=== PATIENT | female | born 1985 | race Caucasian/White ===

== ENCOUNTER 2018-07-30 17:30 | Inpatient (IN) | payer BC, SELFPAY ==
[~2018-07-30] VITALS: Ht 154.9 cm; Wt 72.1 kg
[2018-07-30] MEDS ORDERED: OXYTOCIN/0.9 % SODIUM CHLORIDE 1,000 ML IV SCH (17:46)
[2018-07-30] MEDS ORDERED: LR 1,000 ML IV ONE (17:46)
[2018-07-30] MEDS ORDERED: LR 1,000 ML IV SCH (17:46)
[2018-07-30] MEDS ORDERED: NALBUPHINE HCL 10 MG/ML AMP IVP PRN (18:00)
[2018-07-30] MEDS ORDERED: TERBUTALINE SULFATE 1 MG/ML VIAL SUBCUT ONE (18:00)
[2018-07-30 18:28] LABS: BASOPHILS % (AUTO) 0.4 % (0.0-2.0); EOSINOPHILS # (AUTO) 0.1 K/uL (0.0-0.4); EOSINOPHILS % (AUTO) 0.8 % (0.0-4.0); HEMATOCRIT 37.2 % (36-48); HEMOGLOBIN 12.6 g/dL (12.0-16.0); LYMPHOCYTES % (AUTO) 21.4 % (20.5-51.5); MEAN CORPUSCULAR HEMOGLOBIN 33 pg (27-31); MEAN CORPUSCULAR HGB CONC 34 % (32-36); MEAN CORPUSCULAR VOLUME 98 fL (79.0-98.0); MONOCYTES # (AUTO) 0.5 K/uL (0.0-1.0); NEUTROPHILS # (AUTO) 6.8 K/uL (1.8-7.7); NEUTROPHILS % (AUTO) 72.4 % (40.0-70.0); PLATELET COUNT (AUTO) 220 K/uL (130-430); RED BLOOD CELL COUNT(AUTO) 3.79 MIL/uL (4.2-6.2); RED CELL DISTRIBUTION WIDTH 13.4 % (9.0-15.0); WHITE BLOOD COUNT (AUTO) 9.4 K/uL (4.8-10.8)
[2018-07-30 18:34] VITALS: BP_SYST 115
[2018-07-30] MEDS ORDERED: ROPIVACAINE 0.2% 100 ML ONE (19:06)
[2018-07-30] MEDS ORDERED: fentaNYL CITRATE/PF 100 MCG/2 ML AMP ONE (19:06)
[2018-07-30] MEDS ORDERED: CLINDAMYCIN 600 MG in D5W 50 ML IV SCH (19:30)
[2018-07-30] MEDS ORDERED: LR 500 ML IV ONE (21:35)
[2018-07-30] MEDS ORDERED: FENT2mCg/mL-ROPIVA0.2%/NS EPID 150 ML EP SCH (21:45)
[2018-07-31] MEDS ORDERED: ROPIVACAINE 0.2% 100 ML ONE (02:06)
[2018-07-31] MEDS ORDERED: OXYTOCIN/0.9 % SODIUM CHLORIDE 1,000 ML IV ONE (07:38)
[2018-07-31] MEDS ORDERED: OXYTOCIN/0.9 % SODIUM CHLORIDE 1,000 ML IV SCH (07:38)
[2018-07-31] MEDS ORDERED: OXYCODONE/ACETAMINOPHEN 5-325 TABLET PO PRN (07:45)
[2018-07-31] MEDS ORDERED: DOCUSATE SODIUM 100 MG CAPSULE PO PRN (07:45)
[2018-07-31] MEDS ORDERED: HYDROCORTISONE 0.5%, 28.35 GM TOPICAL CREAM TP PRN (07:45)
[2018-07-31] MEDS ORDERED: CLINDAMYCIN 600 MG in D5W 50 ML IV SCH (07:45)
[2018-07-31] MEDS ORDERED: LANOLIN 7 GM OINT. TP PRN (07:45)
[2018-07-31] MEDS ORDERED: METHYLERGONOVINE MALEATE 0.2 MG TABLET PO PRN (07:45)
[2018-07-31] MEDS ORDERED: WITCH HAZEL LEAF 1 MED.PAD MED.PAD TP PRN (07:45)
[2018-07-31] MEDS ORDERED: RHO(D) IMMUNE GLOBULIN/MALTOSE 1500 UNITS/1.3 ML (WINHRO) IM PRN (07:45)
[2018-07-31] MEDS ORDERED: DERMOPLAST SPRAY TP PRN (07:45)
[2018-07-31] MEDS ORDERED: MEASLES,MUMPS&RUBELLA VACC/PF 12500 UNIT/0.5 ML VIAL SUBQ PRN (07:45)
[2018-07-31] MEDS ORDERED: DIPH-TET-PERTUS Vaccine 0.5 ML VIAL (ADACEL) I.M. PRN (07:45)
[2018-07-31] MEDS ORDERED: HYDROcodone/ACETAMIN 5-325 MG TAB (NORCO/ VICODIN) PO PRN (07:45)
[2018-07-31] MEDS: IBUPROFEN 600 MG TABLET PO SCH ×3 (08:35→23:59)
[2018-07-31] MEDS ORDERED: IBUPROFEN 600 MG TABLET PO SCH (12:00)
[2018-07-31] MEDS: OXYCODONE/ACETAMINOPHEN 5-325 TABLET PO PRN ×3 (13:08→21:13)
[2018-07-31] MEDS ORDERED: TEMAZEPAM 15 MG CAPSULE PO PRN (21:00)
[2018-08-01] MEDS: IBUPROFEN 600 MG TABLET PO SCH ×3 (06:00→12:00)
[2018-08-01 08:18] LABS: HEMATOCRIT 29.5 % (36-48); MEAN CORPUSCULAR HEMOGLOBIN 33 pg (27-31); MEAN CORPUSCULAR HGB CONC 34 % (32-36); MEAN CORPUSCULAR VOLUME 99 fL (79.0-98.0); RED BLOOD CELL COUNT(AUTO) 2.99 MIL/uL (4.2-6.2); WHITE BLOOD COUNT (AUTO) 9.8 K/uL (4.8-10.8)
[2018-08-01 08:19] LABS: BASOPHILS % (AUTO) 0.2 % (0.0-2.0); EOSINOPHILS # (AUTO) 0.2 K/uL (0.0-0.4); EOSINOPHILS % (AUTO) 1.8 % (0.0-4.0); LYMPHOCYTES # (AUTO) 2.4 K/uL (1.0-5.5); LYMPHOCYTES % (AUTO) 24.2 % (20.5-51.5); MONOCYTES # (AUTO) 0.5 K/uL (0.0-1.0); NEUTROPHILS # (AUTO) 6.7 K/uL (1.8-7.7); NEUTROPHILS % (AUTO) 68.8 % (40.0-70.0); PLATELET COUNT (AUTO) 158 K/uL (130-430); RED CELL DISTRIBUTION WIDTH 13.9 % (9.0-15.0)
[2018-08-01] MEDS: OXYCODONE/ACETAMINOPHEN 5-325 TABLET PO PRN ×2 (08:39→15:47)
== END 2018-08-01 17:50 | disposition home or self-care (01) | DRG 807 ==
LOC: SPU 17:30
PROVIDERS: ADMIT Specialist; ATTEND Specialist
PROC: 10E0XZZ Delivery of Products of Conception, External Approach (ICD-10-PCS; principal; 2018-07-31)
PROC: 3E0R3BZ Introduction of Anesthetic Agent into Spinal Canal, Percutaneous Approach (ICD-10-PCS; 2018-07-31)
PROC: 00HU33Z Insertion of Infusion Device into Spinal Canal, Percutaneous Approach (ICD-10-PCS; 2018-07-31)
PROC: 0KQM0ZZ Repair Perineum Muscle, Open Approach (ICD-10-PCS; 2018-07-31)
DX: O70.1 Second degree perineal laceration during delivery (principal); Z37.0 Single live birth; Z3A.38 38 weeks gestation of pregnancy
CPT/HCPCS: 36415; 81002-TC; 82962; 85025; 86592; 86886; 86900; 86901; 90715; J2795; J3010; J3490; J7060; J7120

== ENCOUNTER 2020-10-06 06:00 | Day surgery (SDC) | payer BC, SELFPAY ==
[2020-10-01 10:00] LABS: BASOPHILS % (AUTO) 0.6 % (0.0-2.0); EOSINOPHILS # (AUTO) 0.1 K/uL (0.0-0.4); EOSINOPHILS % (AUTO) 1.5 % (0.0-4.0); HEMATOCRIT 38.7 % (36-48); HEMOGLOBIN 13.1 g/dL (12.0-16.0); LYMPHOCYTES % (AUTO) 33.8 % (20.5-51.5); MEAN CORPUSCULAR HEMOGLOBIN 31 pg (27-31); MEAN CORPUSCULAR HGB CONC 34 % (32-36); MEAN CORPUSCULAR VOLUME 92 fL (79.0-98.0); MONOCYTES # (AUTO) 0.3 K/uL (0.0-1.0); MONOCYTES % (AUTO) 4.9 % (1.7-9.3); NEUTROPHILS # (AUTO) 3.4 K/uL (1.8-7.7); NEUTROPHILS % (AUTO) 59.2 % (40.0-70.0); PLATELET COUNT (AUTO) 197 K/uL (130-430); RED CELL DISTRIBUTION WIDTH 13.5 % (9.0-15.0); WHITE BLOOD COUNT (AUTO) 5.8 K/uL (4.8-10.8)
[2020-10-01 10:01] LABS: BILIRUBIN,URINE NEGATIVE (NEGATIVE); BLOOD, URINE NEGATIVE (NEGATIVE); CLARITY/URINE CLEAR (CLEAR); COLOR,URINE YELLOW (YELLOW); GLUCOSE,URINE NEGATIVE (NEGATIVE); KETONES,URINE NEGATIVE (NEGATIVE); LEUKOCYTE ESTERASE ,URINE NEGATIVE (NEGATIVE); NITRITE, URINE NEGATIVE (NEGATIVE); PROTEIN URINE TRACE (NEGATIVE); UROBILINOGEN,URINE 0.2 (0.2-1.0)
[~2020-10-06] VITALS: Ht 154.9 cm; Wt 60.8 kg
[2020-10-06 06:33] LABS: HCG,QUAL RESULT NEGATIVE (NEGATIVE)
[2020-10-06] MEDS ORDERED: fentaNYL CITRATE/PF 100 MCG/2 ML AMP IVP PRN ×2 (09:00)
[2020-10-06] MEDS ORDERED: ONDANSETRON HCL 4 MG/2 ML VIAL IVP PRN ×2 (09:00→10:00)
[2020-10-06] MEDS ORDERED: HYDROcodone/ACETAMIN 5-325 MG TAB (NORCO/ VICODIN) PO PRN (10:00)
[2020-10-06] MEDS ORDERED: OXYCODONE/ACETAMINOPHEN 5-325 TABLET PO PRN ×2 (10:00)
[2020-10-06 11:45] VITALS: BP_SYST 100
[2020-10-06] MEDS ORDERED: KETOROLAC TROMETHAMINE 30 MG VIAL IVP ONE (13:30)
[2020-10-06] MEDS ORDERED: KETOROLAC TROMETHAMINE 30 MG VIAL ONE (13:32)
[2020-10-06] MEDS ORDERED: HYDROmorphone 2 MG/ML VIAL IVP PRN (14:30)
[2020-10-06] MEDS ORDERED: HYDROmorphone 2 MG/ML VIAL IVP ONE (14:30)
[2020-10-06] MEDS ORDERED: ACETAMINOPHEN 500 MG TABLET ONE (20:48)
[2020-10-06] MEDS: QUEtiapine FUMARATE 100 MG TABLET PO SCH (20:57)
[2020-10-06] MEDS: KETOROLAC TROMETHAMINE 30 MG VIAL IVP SCH (20:57)
[2020-10-06] MEDS: SIMETHICONE 80 MG TAB.CHEW PO PRN (20:58)
[2020-10-06] MEDS ORDERED: ACETAMINOPHEN 500 MG TABLET PO PRN ×2 (21:00)
[2020-10-07] MEDS: KETOROLAC TROMETHAMINE 30 MG VIAL IVP SCH ×2 (06:25)
[2020-10-07] MEDS ORDERED: IBUPROFEN 600 MG TABLET ONE (09:46)
[2020-10-07] MEDS: SIMETHICONE 80 MG TAB.CHEW PO PRN ×3 (12:10→23:29)
[2020-10-07] MEDS ORDERED: OXYCODONE/ACETAMINOPHEN 5-325 TABLET ONE (13:00)
[2020-10-07] MEDS ORDERED: OXYCODONE/ACETAMINOPHEN 5-325 TABLET PO PRN (13:00)
[2020-10-07] MEDS: IBUPROFEN 600 MG TABLET PO PRN ×2 (18:03→22:39)
[2020-10-07] MEDS: QUEtiapine FUMARATE 100 MG TABLET PO SCH (21:40)
[2020-10-07] MEDS ORDERED: OXYCODONE/ACETAMINOPHEN 5-325 TABLET PO ONE (21:45)
[2020-10-07] MEDS ORDERED: OXYCODONE/ACETAMINOPHEN *10*mg/325 mg TABLET PO PRN (21:45)
[2020-10-07] MEDS ORDERED: TEMAZEPAM 15 MG CAPSULE ONE (22:12)
[2020-10-07] MEDS ORDERED: ZOLPIDEM TARTRATE 5 MG TABLET ONE (22:35)
[2020-10-07] MEDS ORDERED: ONDANSETRON 4 MG ODT TAB PO PRN (23:30)
[2020-10-08] MEDS ORDERED: IBUPROFEN 600 MG TABLET PO SCH
[2020-10-08] MEDS ORDERED: FIORCET PO PRN ×2 (08:15→09:30)
[2020-10-08] MEDS ORDERED: FIORCET ONE (08:22)
[2020-10-08] MEDS ORDERED: ROPIVACAINE HCL 0.2% ONE (09:03)
[2020-10-08] MEDS: IBUPROFEN 600 MG TABLET PO PRN (09:42)
[2020-10-08] MEDS ORDERED: ROPIVACAINE HCL/PF 0.2% EPIDURAL 200 ML PLAST..BAG EP PRN (09:45)
[2020-10-08] MEDS ORDERED: PROCHLORPERAZINE MALEATE 5 MG TABLET PO PRN (11:15)
[2020-10-08] MEDS: SIMETHICONE 80 MG TAB.CHEW PO PRN (13:03)
[2020-10-08] MEDS ORDERED: TEMAZEPAM 7.5 MG CAPSULE PO SCH ×2 (21:00)
== END 2020-10-08 15:00 | disposition still patient (30) ==
LOC: SMU 06:00 → SDS 06:00 → SPU 14:21 → SDS 10-08 15:00
PROVIDERS: ATTEND Specialist
DX: N93.8 Other specified abnormal uterine and vaginal bleeding (principal); N92.0 Excessive and frequent menstruation with regular cycle; N83.201 Unspecified ovarian cyst, right side; N80.0 Endometriosis of uterus; Z90.49 Acquired absence of other specified parts of digestive tract; Z90.89 Acquired absence of other organs; Z20.828 Contact with and (suspected) exposure to other viral communicable diseases
CPT/HCPCS: 36415; 58542; 64488; 81003; 82962; 84703 ×2; 85025; 88307; 93005; C1727; J1885 ×2; J2405; J7120; Q0164; S2900; U0003; E0190

== ENCOUNTER 2021-01-31 20:34 | Emergency (ER) | payer BC, SELFPAY ==
[~2021-01-31] VITALS: Ht 157.5 cm; Wt 59.9 kg
--- NOTE | 2021-01-31 20:37 | NUR ---
Patient to ER bed 5 to gown for evaluation. Side rails up. Report given to ALEKSANDRA Granado.
[2021-01-31 20:38] VITALS: BP_SYST 131
--- NOTE | 2021-01-31 20:38 | NUR ---
ER Dr. Nicole at bedside examining patient.
[2021-01-31] MEDS ORDERED: ALPRAZolam 0.25 MG TABLET PO ONE (20:45)
--- NOTE | 2021-01-31 21:05 | NUR ---
AWAKE, ALERT. STATES THAT SHE WAS FEELING VERY WEAK, HAVING PALPAITATIONS AND CHEST PAINS RADIATING TO THE BACK. PT SEEMS ANXIOUS.
[2021-01-31 21:31] LABS: BASOPHILS # (AUTO) 0.1 K/uL (0.0-0.2); EOSINOPHILS # (AUTO) 0.1 K/uL (0.0-0.4); EOSINOPHILS % (AUTO) 1.9 % (0.0-4.0); HEMATOCRIT 39.3 % (36-48); HEMOGLOBIN 13.4 g/dL (12.0-16.0); LYMPHOCYTES % (AUTO) 47.3 % (20.5-51.5); MEAN CORPUSCULAR HEMOGLOBIN 31 pg (27-31); MEAN CORPUSCULAR HGB CONC 34 % (32-36); MEAN CORPUSCULAR VOLUME 91 fL (79.0-98.0); MONOCYTES # (AUTO) 0.3 K/uL (0.0-1.0); MONOCYTES % (AUTO) 4.7 % (1.7-9.3); NEUTROPHILS # (AUTO) 2.8 K/uL (1.8-7.7); NEUTROPHILS % (AUTO) 45.1 % (40.0-70.0); PLATELET COUNT (AUTO) 199 K/uL (130-430); RED BLOOD CELL COUNT(AUTO) 4.31 MIL/uL (4.2-6.2); RED CELL DISTRIBUTION WIDTH 13.1 % (9.0-15.0); WHITE BLOOD COUNT (AUTO) 6.3 K/uL (4.8-10.8)
[2021-01-31 21:34] LABS: BARBITURATE, URINE NEGATIVE (NEG <=200); URINE AMPHETAMINE NEGATIVE (NEG <=500)
[2021-01-31 21:35] LABS: BENZODIAZEPINE, URINE NEGATIVE (NEG <=150); CANNABINOID, URINE NEGATIVE (NEG <=50); COCAINE, URINE NEGATIVE (NEG <=150); METHAMPHETAMINES SCREEN,URINE NEGATIVE (NEG <=500); OPIATE, URINE NEGATIVE (NEG <=100); PHENCYCLIDINE SCREEN,URINE NEGATIVE (NEG <=25); UR TRICYCLIC ANTIDEPRESSANTS NEGATIVE (NEG <=300); URINE METHADONE NEGATIVE (NEG <=200); URINE OXYCODONE SCREEN NEGATIVE (NEG <=100); URINE PROPOXYPHENE SCREEN NEGATIVE (NEG <=300)
[2021-01-31 21:48] LABS: CALCIUM 9.2 mg/dL (8.4-11.0); CREATININE 1.12 mg/dL (0.55-1.30); POTASSIUM 3.8 mmol/L (3.5-5.1)
[2021-01-31 22:03] LABS: ALBUMIN 4.3 g/dL (3.4-4.8); FREE T4 (FREE THYROXINE) 0.8 ng/dl (0.8-1.5); THYROID STIMULATING HORMONE 0.83 uIu/mL (0.36-3.74); TOTAL BILIRUBIN 0.3 mg/dL (0.0-1.0)
[2021-01-31 22:12] LABS: PROTHROMBIN TIME 10.1 SECS (9.5-12.5)
--- NOTE | 2021-01-31 23:17 | NUR ---
ER at bedside to re-eval patient.
[2021-01-31] MEDS ORDERED: KETOROLAC TROMETHAMINE 60 MG/2 ML VIAL IM ONE (23:30)
[2021-01-31] MEDS ORDERED: ACETAMINOPHEN 500 MG TABLET PO ONE (23:45)
--- NOTE | 2021-01-31 23:47 | NUR ---
Patient reported, headache, Given Tylenol 1000 mg PO as verbal order Dr. White.
[2021-01-31] MEDS ORDERED: ACETAMINOPHEN 500 MG TABLET ONE (23:48)
[2021-01-31] MEDS ORDERED: IBUP-1969 PO (23:53)
[2021-01-31 23:59] VITALS: BP_SYST 122
--- NOTE | 2021-01-31 23:59 | NUR ---
Patient given written and verbal discharge instructions and verbalizes understanding. ER MD discussed with patient the results and treatment provided. Patient in stable condition. ID arm band removed. Rx of Ibuprofen given. Patient educated on pain management and to follow up with PMD. Pain Scale 2/10. Opportunity for questions provided and answered. Medication side effect fact sheet provided.
== END 2021-01-31 23:59 | disposition home or self-care (01) ==
LOC: SED 20:34
DX: R00.2 Palpitations (principal); R07.89 Other chest pain; G44.209 Tension-type headache, unspecified, not intractable; Z88.1 Allergy status to other antibiotic agents; Z88.8 Allergy status to other drugs, medicaments and biological substances; Z91.040 Latex allergy status
CPT/HCPCS: 36415; 71045; 80053; 80307; 81025; 82550; 83880; 84439; 84443; 84484; 85025; 85610-TC; 85730-TC; 93005; 96372; 99285

== ENCOUNTER 2021-08-16 05:30 | Day surgery (SDC) | payer BC, SELFPAY ==
[2021-08-12 10:17] LABS: EOSINOPHILS # (AUTO) 0.1 K/uL (0.0-0.4); EOSINOPHILS % (AUTO) 2.7 % (0.0-4.0); HEMOGLOBIN 13.3 g/dL (12.0-16.0); LYMPHOCYTES # (AUTO) 1.8 K/uL (1.0-5.5); LYMPHOCYTES % (AUTO) 38.9 % (20.5-51.5); MEAN CORPUSCULAR HEMOGLOBIN 30 pg (27-31); MEAN CORPUSCULAR HGB CONC 34 % (32-36); MEAN CORPUSCULAR VOLUME 89 fL (79.0-98.0); MONOCYTES # (AUTO) 0.2 K/uL (0.0-1.0); MONOCYTES % (AUTO) 5.3 % (1.7-9.3); NEUTROPHILS # (AUTO) 2.4 K/uL (1.8-7.7); NEUTROPHILS % (AUTO) 52.1 % (40.0-70.0); PLATELET COUNT (AUTO) 225 K/uL (130-430); RED CELL DISTRIBUTION WIDTH 13.1 % (9.0-15.0); WHITE BLOOD COUNT (AUTO) 4.7 K/uL (4.8-10.8)
[2021-08-12 12:25] LABS: BILIRUBIN,URINE NEGATIVE (NEGATIVE); BLOOD, URINE 1+ (NEGATIVE); CLARITY/URINE CLOUDY (CLEAR); COLOR,URINE YELLOW (YELLOW); GLUCOSE,URINE NEGATIVE (NEGATIVE); KETONES,URINE NEGATIVE (NEGATIVE); LEUKOCYTE ESTERASE ,URINE 1+ (NEGATIVE); NITRITE, URINE NEGATIVE (NEGATIVE); PROTEIN URINE NEGATIVE (NEGATIVE); UROBILINOGEN,URINE 0.2 (0.2-1.0)
[2021-08-12 12:56] LABS: BACTERIA,URINE RARE /HPF (None Seen); URINE AMORPHOUS URATE 4+ /HPF (None Seen)
[~2021-08-16] VITALS: Ht 157.5 cm; Wt 65.8 kg
[~2021-08-16 05:30] MED LIST: IBUP-1969 PO
[2021-08-16] MEDS ORDERED: CEFAZOLIN SOD 1 GM in D5W 50 ML IV ONE (07:30)
[2021-08-16] MEDS ORDERED: BUPIVACAINE LIPOSOME/PF 266 MG/20 ML VIAL INFIL ONE (07:43)
[2021-08-16] MEDS ORDERED: OXYCODONE/ACETAMINOPHEN 5-325 TABLET PO PRN ×2 (09:00)
[2021-08-16] MEDS ORDERED: HYDROcodone/ACETAMIN 5-325 MG TAB (NORCO/ VICODIN) PO PRN (09:00)
[2021-08-16] MEDS ORDERED: ONDANSETRON HCL 4 MG/2 ML VIAL IVP PRN (09:00)
[2021-08-16] MEDS ORDERED: SIMETHICONE 80 MG TAB.CHEW PO SCH (09:00)
[2021-08-16] MEDS ORDERED: METOCLOPRAMIDE HCL 10 MG/2 ML VIAL ONE (09:13)
[2021-08-16] MEDS ORDERED: ROCURONIUM BROMIDE 10 MG/ML (ZEMURON) ONE (09:13)
[2021-08-16] MEDS ORDERED: LR 1,000 ML IV.SOLN IV ONE (09:13)
[2021-08-16] MEDS ORDERED: ONDANSETRON HCL 4 MG/2 ML VIAL ONE (09:13)
[2021-08-16] MEDS ORDERED: KETOROLAC TROMETHAMINE 30 MG VIAL ONE (09:13)
[2021-08-16] MEDS ORDERED: SEVOFLURANE 15 MIN GAS INH ONE (09:13)
[2021-08-16] MEDS ORDERED: DEXAMETHASONE SOD PHOSPHATE 4 MG/ML VIAL ONE (09:13)
[2021-08-16] MEDS ORDERED: CLINDAMYCIN 2% VAGINAL CREAM VG ONE (09:13)
[2021-08-16] MEDS ORDERED: NS 1000 ML IV.SOLN IV ONE (09:13)
[2021-08-16] MEDS ORDERED: BUPIVACAINE /EPINEPHRINE/PF 0.25% 30 ML VIAL INJ ONE (09:13)
[2021-08-16] MEDS ORDERED: NS IRRIG SOLN 1000 ML IR ONE (09:13)
[2021-08-16] MEDS ORDERED: SUCCINYLCHOLINE CHLORIDE 20 MG/ML(QUELICIN) ONE (09:13)
[2021-08-16] MEDS ORDERED: fentaNYL CITRATE/PF 100 MCG/2 ML AMP ONE (09:13)
[2021-08-16] MEDS ORDERED: LIDOCAINE 2%, 20 ML MDV ONE (09:13)
[2021-08-16] MEDS ORDERED: MEPERIDINE 50 MG/ML VIAL ONE (09:13)
[2021-08-16] MEDS ORDERED: PROPOFOL 200MG/ 20ML VIAL (DIPRIVAN) IV ONE (09:13)
[2021-08-16] MEDS ORDERED: MIDAZOLAM HCL 5 MG/ML VIAL (VERSED) IV ONE (09:13)
[2021-08-16 09:55] VITALS: BP_SYST 105
== END 2021-08-16 12:35 | disposition home or self-care (01) ==
LOC: SDS 05:30
PROVIDERS: ATTEND Specialist
DX: N93.8 Other specified abnormal uterine and vaginal bleeding (principal); R10.2 Pelvic and perineal pain; Z88.1 Allergy status to other antibiotic agents; Z91.048 Other nonmedicinal substance allergy status; Z91.040 Latex allergy status; Z20.822 Contact with and (suspected) exposure to COVID-19
CPT/HCPCS: 36415; 49320; 57530; 71046; 81000; 84703; 85025; 88307; 93005; C1727; C9290; J0330; J0690; J1100; J1885; J2001; J2175; J2250; J2405; J2704; J2765; J3010; J3490; J7030; J7060; J7120; U0003